=== PATIENT | male | born 1955 | race Caucasian/White ===

== ENCOUNTER → 2024-07-29 08:16 | Outpatient (REF) | payer MEDICARE, SELFPAY | LOC: PAVMRI 08:16 | PROVIDERS: ATTENDING PHYSICIAN Internal Medicine Cardiovascular Disease; FAMILY PHYSICIAN Internal Medicine | DX: I44.2 Atrioventricular block, complete (principal) | CPT/HCPCS: 75561; 75565; A9585 ==

== ENCOUNTER → 2024-08-22 07:40 | Day surgery (SDC) | payer MEDICARE, SELFPAY ==
[2024-08-22] VITALS (9 sets, daily range): BP systolic 105–155; BP diastolic 63–87
[2024-08-22] MEDS: NSS 500 IV (09:33)
[2024-08-22 09:35] LABS: Hematocrit 45.5 % (39.0-52.0); Hemoglobin 15.6 g/dL (13.0-18.0); Mean Corp Hgb Conc. 34.3 g/dL (33.0-37.0); Mean Corpuscular Volume 90.3 fL (80.0-94.0); Mean Platelet Volume 10.4 fL (7.4-10.4); Platelet Count 165 10^3/uL (130-400); Red Blood Cell Count 5.04 10^6/uL (4.70-6.10); Red Cell Dist. Width 12.1 % (11.5-14.5); White Blood Cell Count 4.7 10^3/uL (4.8-10.8)
[2024-08-22 09:36] LABS: ALT (SGPT) 53 U/L (0-50); AST (SGOT) 44 U/L (17-59); Albumin 4.2 g/dl (3.5-5.0); Alkaline Phosphatase 73 U/L (38-126); Blood Urea Nitrogen 34 mg/dl (9-20); Calcium 9.2 mg/dl (8.4-10.2); Carbon Dioxide 32 mmol/L (22-30); Chloride 99 mmol/L (98-107); Estimated Creatinine Clearance 63 ml/min; Glucose 95 mg/dl (70-99); Potassium 4.6 mmol/L (3.5-5.1); Sodium 137 mmol/L (135-145); Total Bilirubin 0.6 mg/dl (0.2-1.3); eGFR > 60.00
--- NOTE | 2024-08-22 13:50 | ITS.CL.PACE ---
Engineer Technician - Pacemaker Implant
Pacemaker Implant
Procedure Report:
PACEMAKER IMPLANT REPORT
Primary CARE physician: Dr Joni Warren
Primary paper ruler: Dr Tejas Tian
Date of Procedure: August 22, 2024
Procedure:
Implantation of dual-chamber permanent pacemaker utilizing the left bundle branch for conduction system pacing
Indication/Diagnosis:
Non-reversible symptomatic bradycardia due to third degree atrioventricular block
After informed consent was obtained, 'time out' was called and confirmed, the patient was prepped and draped in a sterile fashion. Lidocaine with epi was used for local anesthesia. Central venous access was obtained via subclavian venipuncture. An
incision was made along the left chest and a pre-pectoral pocket was formed. Using a Seldinger technique and peel-away sheaths, the pacing leads were placed under fluoroscopic guidance.
Fluoroscopy was used to determine likely anatomic site for left bundle branch pacing. The [employer] C315 sheath was used to deliver the Medtronic 3830 Selectsecure pacing lead with the helix exposed just exposed from the sheath tip during continuous
monitoring when pacemapping the septum during gentle clockwise rotation to obtain a paced QRS morphology of a W pattern in lead V1. Once the suspected optimal site was identified, lead deployment was performed with several rapid rotations as paced
QRS morphology was intermittently monitored until a paced QRS complex in lead V1 demonstrated development of an R wave (qR).
Unipolar pacing impedance dropped by approximately 100 ohms suggesting it had reached the left ventricular subendocardial.
Stable VEgm injury current is present throughout final lead position including at end of case, suggesting there was no perforation through the septum into the LV cavity.
Unipolar pacing impedance is 1100 Ohms
Unipolar pacing threshold is stable at 1 V @ 0.4 ms.
Final conduction system paced QRS complex duration is 108 ms
LVAT is 80 ms
Right atrial lead was placed at the RAA.
Once testing (see below) showed adequate and stable function, the leads were secured using the suture sleeves. The pocket was liberally irrigated with antibiotic solution. The leads were connected to the generator header and the leads and
generator were placed within the pocket. Fluoroscopy confirmed stable lead position. The pocket was closed in the typical fashion.
Fluoroscopy was used to guide lead placement.
IMPLANTS:
Medtronic [id number], SN: [id number], Left Pectoral
RA: Medtronic 5076-45, SN: [id number], RAA
Left Bundle: Medtronic 3830 , SN:LFF [id number], Interventricular septum at LBB
DEVICE TESTING:
Sensing: RA 2.5 mV, RV 7.876 mV
Capture: RA 0.75 V@0.4ms, RV 0.75 V@0.4ms
Ohms: RA 551, RV 684
FINAL PROGRAMMING
Kumar Pacing: DDD 50-130 ppm
COMPLICATIONS:
None
CONCLUSIONS:
Successful implant of dual chamber permanent pacemaker utilizing Left Bundle Branch conduction system capture for ventricular resynchronization pacing.
RECOMMENDATIONS:
1. Post-op care (tele, CXR, IV abx)
2. In-Office wound check in 5-7 days
Copy to:
Dr Joni Warren
Dr Tejas Tian
--- NOTE | 2024-08-22 16:01 | W.PN.UPDATE ---
Update Note
Progress Note Update
69 yo WM s/p PPM (Same day). He denies pain, site stable with pressure dressing in place, CXR no PTX (official read pending), EKG AsVpaced. Activity restrictions reviewed. He will have incision check at [facility] on Monday. I instructed him about removal
of pressure dressing in 24 hours. He is for d/c home after 4pm.
[2024-08-22] MEDS: ANCEF 5 IV (16:04)
== END | disposition home or self-care (01) ==
LOC: CATH 07:40
PROVIDERS: ATTENDING PHYSICIAN Internal Medicine Cardiovascular Disease; FAMILY PHYSICIAN Internal Medicine; OTHER PHYSICIAN Internal Medicine Cardiovascular Disease
DX: I44.2 Atrioventricular block, complete (principal); R00.1 Bradycardia, unspecified; I10 Essential (primary) hypertension; E78.00 Pure hypercholesterolemia, unspecified; G47.33 Obstructive sleep apnea (adult) (pediatric)
CPT/HCPCS: 33208; 71045; 80053; 85027; 93005; C1769; C1785; C1887; C1892; C1898; Q9967

== ENCOUNTER 2024-08-28 11:45 | Day surgery (SDC) | payer MEDICARE, SELFPAY ==
[2024-08-28] VITALS (11 sets, daily range): BP systolic 106–150; BP diastolic 77–98; BMI 29.2
--- NOTE | 2024-08-28 15:54 | ITS.CL.PACE ---
[facility] - Pacemaker Implant
Pacemaker Implant
Procedure Report:
PACEMAKER ATRIAL LEAD REVISION
Date of Procedure: August 28, 2024
Primary CARE physician: Dr Joni Warren
Primary credentialer: Dr Tejas Tian
PROCEDURES:
Revision of dislodged/failed right atrial lead which was initially implanted August 22, 2024
INDICATION FOR PROCEDURE:
Dislodged/failed right atrial pacing lead
The patient was prepped and draped in sterile fashion. Fluoroscopy demonstrated dislodgment of the right atrial pacing lead from the right atrial appendage to where the tip is now at the area of the tricuspid valve.
Lidocaine with epi was used for local anesthesia. An incision was made along the previous incision and the device and leads were carefully dissected from the pocket. Hemostasis was obtained with electrocautery. The atrial lead was
from the device header. Dissection down to its suture sleeve was accomplished and the suture sleeve ties were severed. Next active-fixation was withdrawn. A J stylette was inserted within the lumen of the atrial lead and the atrial lead tip was
repositioned to the right atrial appendage. Active-fixation was deployed. Initially while there were large P waves and good capture threshold, sensing demonstrated rather low injury current. Active-fixation was withdrawn and the lead was moved to
a slightly more lateral position where active-fixation was deployed. Sensing down demonstrates the typical injury current along with adequate P waves and adequate capture threshold. The lead was then secured to the pectoral fascia using the suture
sleeves. The pocket was liberally irrigated with antibiotic solution. The right atrial pacing lead was then repositioned within the header of the device and the pin was wrenched downward into place securing the lead pin. An antibiotic pouch was
also utilized. The pocket was closed in the typical fashion.
REPOSITIONED:
RA: Medtronic 5076-45, SN: KERRYN [id number], RAA
RETAINED:
Medtronic [id number], SN: RNB [id number], Left Pectoral
Left Bundle: Medtronic 3830 , SN:LFF [id number], Interventricular septum at LBB
DEVICE TESTING:
Sensing: RA 5 mV, RV 20 mV
Capture: RA 0.5 V @ 0.4ms, RV 0.75 V @ 0.4ms
Ohms: RA 470, RV 494
FINAL PROGRAMMING
Kumar Pacing: DDD 50-130 ppm
COMPLICATIONS:
None
CONCLUSIONS:
Revision of dislodged/failed right atrial lead which was initially implanted August 22, 2024
RECOMMENDATIONS:
In-Office wound check in 7-10 days (AT [facility]).
Copy to:
Dr Joni Warren
Dr Tejas Tian
[2024-08-28] MEDS: ANCEF 5 IV (17:51)
== END 2024-08-28 18:10 | disposition home or self-care (01) ==
LOC: CATH 11:45
PROVIDERS: ATTENDING PHYSICIAN Internal Medicine Cardiovascular Disease; FAMILY PHYSICIAN Internal Medicine; OTHER PHYSICIAN Internal Medicine Cardiovascular Disease
DX: T82.120A Displacement of cardiac electrode, initial encounter (principal); Y83.1 Surgical operation with implant of artificial internal device as the cause of abnormal reaction of the patient, or of later complication, without mention of misadventure at the time of the procedure; I44.2 Atrioventricular block, complete; I10 Essential (primary) hypertension; E78.00 Pure hypercholesterolemia, unspecified; G47.33 Obstructive sleep apnea (adult) (pediatric); Z79.82 Long term (current) use of aspirin
CPT/HCPCS: 33215; 93005